=== PATIENT | male | born 1955 | race Caucasian/White ===

== ENCOUNTER 2021-10-13 12:34 | Outpatient (CLI) | payer BC ==
[~2021-10-13 12:34] MED LIST: Iopamidol 370 76% 100 ML VIAL ONE
== END 2021-10-13 12:35 | disposition home or self-care (01) ==
LOC: CSHCT 12:34
PROVIDERS: ATTEND Internal Medicine
DX: R94.39 Abnormal result of other cardiovascular function study (principal); I65.23 Occlusion and stenosis of bilateral carotid arteries
CPT/HCPCS: 70498; 82565